=== PATIENT | female | born 1945 | race Two or more races ===

== ENCOUNTER 2021-12-11 18:49 | Inpatient (IN) | payer MEDICARE, MEDICAID ==
[~2021-12-11] VITALS: Ht 167.6 cm; Wt 75.0 kg
[2021-12-11 21:32] LABS: Basophils # (auto) 0 10 ^3/uL (0-0.2); Basophils % (auto) 0.3 % (0.0-2.0); Eosinophils # (auto) 0 10 ^3/uL (0-0.8); Eosinophils % (auto) 0.1 % (0.0-7.0); Hematocrit 34.4 % (36.0-46.0); Hemoglobin 11.4 g/dL (12.2-16.2); Lymphocytes # (auto) 1.1 10 ^3/uL (0.4-5.4); Lymphocytes % (auto) 16.1 % (10.0-50.0); Mean Corpuscular Hgb Conc. 33.3 g/dL (32.0-36.0); Mean Corpuscular Volume 81.3 fL (80.0-100.0); Monocytes # (auto) 0.2 10 ^3/uL (0-1.3); Neutrophils # (auto) 5.3 10 ^3/uL (1.6-8.6); Neutrophils % (auto) 80.5 % (37.0-80.0); Red Blood Cells 4.23 10^6/uL (4.0-5.20); Red Cell Distribution Width 16.2 % (11.8-14.3); White Blood Cell 6.6 10^3/uL (4.4-10.8)
[2021-12-11 21:47] LABS: Calcium 9.2 mg/dL (8.5-10.1); Potassium 3.7 mmol/L (3.5-5.1)
[2021-12-11 21:52] LABS: BUN/Creatinine Ratio 37.8; Bilirubin, Total 0.5 mg/dL (0.2-1.0); Total Protein 7.6 g/dL (6.4-8.2)
[2021-12-12 01:14] LABS: Urine Bacteria FEW /hpf (None Seen); Urine Blood Negative /uL (Negative); Urine Specific Gravity 1.011 (1.001-1.035); Urine WBC 2 /hpf (0 - 5)
[2021-12-12] MEDS ORDERED: DEXTROSE (50%) 50ML SYRG IV PRN (01:45)
[2021-12-12] MEDS ORDERED: DOCUSATE SOD 100 MG CAP PO PRN (01:45)
[2021-12-12] MEDS ORDERED: NITROGLYCERIN 0.4 MG SL TAB SL PRN (01:45)
[2021-12-12] MEDS ORDERED: MORPHINE SULFATE INJ 2 MG/ml SYRG IV PRN (01:45)
[2021-12-12] MEDS ORDERED: ACETAMINOPHEN 325 MG TAB PO PRN (01:45)
[2021-12-12 05:53] LABS: Basophils # (auto) 0 10 ^3/uL (0-0.2); Basophils % (auto) 0.2 % (0.0-2.0); Eosinophils # (auto) 0 10 ^3/uL (0-0.8); Eosinophils % (auto) 0.1 % (0.0-7.0); Hematocrit 33.7 % (36.0-46.0); Hemoglobin 11.3 g/dL (12.2-16.2); Lymphocytes # (auto) 1.1 10 ^3/uL (0.4-5.4); Lymphocytes % (auto) 19.3 % (10.0-50.0); Mean Corpuscular Hemoglobin 27.2 pg (28.0-32.0); Mean Corpuscular Hgb Conc. 33.6 g/dL (32.0-36.0); Monocytes # (auto) 0.3 10 ^3/uL (0-1.3); Monocytes % (auto) 4.9 % (0.0-12.0); Neutrophils # (auto) 4.4 10 ^3/uL (1.6-8.6); Neutrophils % (auto) 75.5 % (37.0-80.0); Nucleated Red Blood Cells % 0.1 %; Red Blood Cells 4.16 10^6/uL (4.0-5.20); White Blood Cell 5.8 10^3/uL (4.4-10.8)
[2021-12-12 06:10] LABS: Albumin 3.5 g/dL (3.4-5.0); BUN/Creatinine Ratio 34.4; Calcium 9.4 mg/dL (8.5-10.1); Potassium 3.3 mmol/L (3.5-5.1)
[2021-12-12 06:13] LABS: Bilirubin, Total 0.5 mg/dL (0.2-1.0); Total Protein 7.7 g/dL (6.4-8.2)
[2021-12-12] MEDS: SODIUM CHLOR 0.9% PF (SALINE LOCK) 10ML VIAL/SYR IV SCH ×3 (06:53→22:29)
[2021-12-12] MEDS: InsuLIN REG 1unit/0.01ml Soln (100units/ml) SC SCH ×4 (06:53→22:34)
[2021-12-12] MEDS: ACCU-CHEK COMFORT CURVE STRIP VI SCH ×4 (06:53→22:29)
[2021-12-12] MEDS: ASPirin 81 mg TAB PO SCH (09:40)
[2021-12-12] MEDS: FAMOTIDINE (10MG/ML) 2ML VL IV SCH (09:40)
[2021-12-12] MEDS ORDERED: POTASSIUM CHL 20 Meq TABLET PO ONE (12:00)
[2021-12-12 22:00] VITALS: BP 166/73
[2021-12-12] MEDS: ATORVASTATIN 20 MG TAB PO SCH (22:33)
[2021-12-12 23:23] VITALS: BP 166/73
[2021-12-13] VITALS (7 sets, daily range): BP systolic 142–171; BP diastolic 60–73
[2021-12-13] MEDS ORDERED: PNEUMOCOCCAL VACC POLYS 25 MCG/0.5 ML VIAL IM ONE (01:30)
[2021-12-13] MEDS ORDERED: HYDR-4795 PO (01:50)
[2021-12-13] MEDS ORDERED: ESOM40CA39 PO (01:50)
[2021-12-13] MEDS ORDERED: CYCL0.05 EACHEYE (01:50)
[2021-12-13] MEDS ORDERED: OSEL75CA5 PO (01:50)
[2021-12-13] MEDS ORDERED: MIRT-66 PO (01:50)
[2021-12-13] MEDS ORDERED: VALS160T43 PO ×2 (01:50)
[2021-12-13] MEDS ORDERED: ALPR0.5T7 PO (01:50)
[2021-12-13] MEDS ORDERED: PIO30T PO (01:50)
[2021-12-13] MEDS ORDERED: GABA100C9 PO (01:50)
[2021-12-13] MEDS ORDERED: BACL10TA PO (01:50)
[2021-12-13] MEDS ORDERED: ROSU20TA14 PO (01:50)
[2021-12-13] MEDS ORDERED: SERT50TA19 PO (01:50)
[2021-12-13] MEDS ORDERED: METF-929 PO (01:50)
[2021-12-13 06:11] LABS: Basophils # (auto) 0 10 ^3/uL (0-0.2); Basophils % (auto) 0.3 % (0.0-2.0); Eosinophils # (auto) 0 10 ^3/uL (0-0.8); Hematocrit 34.3 % (36.0-46.0); Hemoglobin 11.6 g/dL (12.2-16.2); Lymphocytes # (auto) 1.3 10 ^3/uL (0.4-5.4); Lymphocytes % (auto) 19.4 % (10.0-50.0); Mean Corpuscular Hemoglobin 27.1 pg (28.0-32.0); Mean Corpuscular Hgb Conc. 33.7 g/dL (32.0-36.0); Mean Corpuscular Volume 80.5 fL (80.0-100.0); Monocytes # (auto) 0.5 10 ^3/uL (0-1.3); Monocytes % (auto) 7.1 % (0.0-12.0); Neutrophils # (auto) 4.9 10 ^3/uL (1.6-8.6); Neutrophils % (auto) 73.2 % (37.0-80.0); Red Blood Cells 4.27 10^6/uL (4.0-5.20); Red Cell Distribution Width 16.2 % (11.8-14.3); White Blood Cell 6.7 10^3/uL (4.4-10.8)
[2021-12-13] MEDS ORDERED: hydrALAZINE HCL 20 MG/ML VL IV ONE (06:30)
[2021-12-13 06:42] LABS: Albumin 3.6 g/dL (3.4-5.0); BUN/Creatinine Ratio 34.2; Bilirubin, Total 0.6 mg/dL (0.2-1.0); Calcium 9.3 mg/dL (8.5-10.1); Total Protein 7.2 g/dL (6.4-8.2)
[2021-12-13] MEDS: ACCU-CHEK COMFORT CURVE STRIP VI SCH ×4 (06:49→22:00)
[2021-12-13] MEDS: SODIUM CHLOR 0.9% PF (SALINE LOCK) 10ML VIAL/SYR IV SCH ×3 (06:49→22:00)
[2021-12-13] MEDS: InsuLIN REG 1unit/0.01ml Soln (100units/ml) SC SCH ×4 (06:49→22:31)
[2021-12-13] MEDS: ASPirin 81 mg TAB PO SCH (11:07)
[2021-12-13] MEDS: FAMOTIDINE (10MG/ML) 2ML VL IV SCH (11:07)
[2021-12-13] MEDS ORDERED: LISINOPRIL 10 MG TAB PO ONE (11:15)
[2021-12-13] MEDS ORDERED: FUROSEMIDE 20 MG/2 ML VIAL IV ONE (11:15)
[2021-12-13] MEDS: ONDANSETRON HCL 4 MG/2 ML VIAL IV PRN ×3 (11:35→22:27)
[2021-12-13] MEDS: ATORVASTATIN 20 MG TAB PO SCH ×2 (22:34→23:03)
[2021-12-13] MEDS: METOPROLOL TARTRATE 25 MG TAB PO SCH (22:35)
[2021-12-14] VITALS (7 sets, daily range): BP systolic 109–178; BP diastolic 55–78
[2021-12-14] MEDS: HYDROcodone-ACET 5/325MG TAB PO PRN ×2 (03:05→21:26)
[2021-12-14] MEDS: ONDANSETRON HCL 4 MG/2 ML VIAL IV PRN (03:06)
[2021-12-14] MEDS: SODIUM CHLOR 0.9% PF (SALINE LOCK) 10ML VIAL/SYR IV SCH ×3 (06:00→21:25)
[2021-12-14] MEDS: InsuLIN REG 1unit/0.01ml Soln (100units/ml) SC SCH ×4 (06:35→21:58)
[2021-12-14] MEDS: ACCU-CHEK COMFORT CURVE STRIP VI SCH ×4 (06:56→21:26)
[2021-12-14 07:05] LABS: BUN/Creatinine Ratio 40.2; Calcium 8.5 mg/dL (8.5-10.1); Potassium 3.7 mmol/L (3.5-5.1)
[2021-12-14 08:06] LABS: RPR Non Reactive (Non Reactive)
[2021-12-14] MEDS: FUROSEMIDE 20 MG/2 ML VIAL IV SCH (10:46)
[2021-12-14] MEDS: FAMOTIDINE (10MG/ML) 2ML VL IV SCH (10:47)
[2021-12-14] MEDS: ASPirin 81 mg TAB PO SCH (10:47)
[2021-12-14] MEDS: METOPROLOL TARTRATE 25 MG TAB PO SCH ×2 (10:48→21:26)
[2021-12-14] MEDS: LISINOPRIL 10 MG TAB PO SCH (10:49)
[2021-12-14 13:55] LABS: Folate (Folic Acid) 13.96 ng/mL (5.38-24)
[2021-12-14 21:06] LABS: Folate (Folic Acid) > 24.00 ng/mL (5.38-24)
[2021-12-14] MEDS: ATORVASTATIN 20 MG TAB PO SCH (21:25)
[2021-12-15 05:00] VITALS: BP 162/60
[2021-12-15] MEDS: SODIUM CHLOR 0.9% PF (SALINE LOCK) 10ML VIAL/SYR IV SCH (05:50)
[2021-12-15] MEDS: ACCU-CHEK COMFORT CURVE STRIP VI SCH (05:50)
[2021-12-15] MEDS: InsuLIN REG 1unit/0.01ml Soln (100units/ml) SC SCH (05:51)
[2021-12-15 07:45] VITALS: BP 152/70
[2021-12-15 09:00] VITALS: BP 152/70
[2021-12-15] MEDS ORDERED: ERGOCALCIFEROL 50,000 UNIT(1.25MG) CAP PO SCH (09:15)
[2021-12-15 09:34] VITALS: BP 152/70
[2021-12-15] MEDS: METOPROLOL TARTRATE 25 MG TAB PO SCH (09:39)
[2021-12-15] MEDS: ASPirin 81 mg TAB PO SCH (09:39)
[2021-12-15] MEDS: FAMOTIDINE (10MG/ML) 2ML VL IV SCH (09:39)
[2021-12-15] MEDS: FUROSEMIDE 20 MG/2 ML VIAL IV SCH (09:39)
[2021-12-15] MEDS: LISINOPRIL 10 MG TAB PO SCH (09:39)
== END 2021-12-15 10:50 | DRG 291 ==
LOC: EDBD 18:49 → ER 18:49 → TELE 12-12 01:49 → TELE-EAST 12-12 21:27
PROVIDERS: ADMIT Nurse Practitioner Family; ATTEND Internal Medicine
DX: I11.0 Hypertensive heart disease with heart failure (principal); G93.41 Metabolic encephalopathy; I50.31 Acute diastolic (congestive) heart failure; M62.562 Muscle wasting and atrophy, not elsewhere classified, left lower leg; M54.17 Radiculopathy, lumbosacral region; R29.6 Repeated falls; E11.65 Type 2 diabetes mellitus with hyperglycemia; Z20.822 Contact with and (suspected) exposure to COVID-19; G89.29 Other chronic pain; I65.21 Occlusion and stenosis of right carotid artery; E55.9 Vitamin D deficiency, unspecified
CPT/HCPCS: 36415; 70450; 70551; 71045; 72148; 80048; 80053; 80061; 81001; 82306; 82607; 82746; 82962; 83036; 83735; 83880; 84443; 84484; 85025; 86592; 87426; 93005; 93306; 93886; 95819; 96374; 97163; G0378; J1815; J2405; J3490